=== PATIENT | female | born 1985 | race Caucasian/White ===

== ENCOUNTER 2017-11-13 21:27 | Emergency (ER) | payer SELFPAY ==
[2017-11-13 22:37] VITALS: BP 142/91
== END 2017-11-13 22:40 | disposition left against medical advice (07) ==
LOC: ED 21:27
DX: O26.851 Spotting complicating pregnancy, first trimester (principal); Z3A.01 Less than 8 weeks gestation of pregnancy; Z53.21 Procedure and treatment not carried out due to patient leaving prior to being seen by health care provider
CPT/HCPCS: 36415; 84144; 84702